=== PATIENT | female | born 1970 | race Hispanic/Latino ===

== ENCOUNTER 2021-02-27 09:45 | Inpatient (IN) | payer MEDICARE ==
[2021-02-27] MEDS ORDERED: hydrOXYzine PAMOATE 25 MG CAP PO PRN (14:37)
[2021-02-27] MEDS: traZODone 50 MG TAB PO SCH (21:07)
[2021-02-27] MEDS: SPIRONOLACTONE 50 MG TAB PO SCH (21:07)
[2021-02-27] MEDS: GABAPENTIN 400 MG CAP PO SCH (21:13)
--- NOTE | 2021-02-28 07:43 | History and Physical Report ---
GP History & Physical - History of Present Illness Date of admission: 02/27/21 Date of Examination: 02/28/21 Chief Complaint: Psychosis History of Present Illness: Kaleb Nath is a 51 year old female with history of Depression, Anxiety and Schizophrenia who was admitted from [facility] for hallucinations/psychosis. In my interview with the patient, she is calm. The patient reports having a nervous breakdown " my neighbors started saying things about me and calling me demon and that I won't make it to heaven; it finally got to me and my sister called 911." Per note: " patient was paranoid thinking neighbors are trying to harm her, seeing heads of people in her food and no sleep for 6 days." The patient states she does not have a psychiatrist but reports she is in care of her PCP. Dr. Chung Waite. The patient reports trying Effexor which she states became ineffective after a while. She is currently on Gabapentin 800mg BID, Vistaril 25mg every 6 hours, and Duloxetine 60mg BID. The patient denies any current suicidal/homicidal ideation and denies hallucinations. PAST PSYCHIATRIC HISTORY: Diagnoses: Depression, Anxiety, and Schizophrenia Suicide attempts or Self-harm behavior: Denies Prior psychiatric hospitalizations: Yes Substance Abuse history: Denies Previous psychiatric medications tried: Effexor- stopped working Outpatient treatment: Yes PAST MEDICAL HISTORY: Skin cancer, Gerd, Factor V Leiden,, DVT, Lupus, Sjogren's syndrome, RA, Raynauds, Sicca, Osteoarthritis, DDD, CKD2, Fatty liver, Agarmmaglobulinemia, Pernicious anemia, HTN. Family Psychiatric History: None reported or documented SOCIAL HISTORY Marital Status: Single Living Arrangements: Lives with son and mother Employment Status: Disabled Access to guns/weapons: Denies Education: some college History of Abuse:Unknown Legal History: Denies REVIEW OF SYSTEMS Constitutional: Negative for weight loss ENT: Negative for stridor Respiratory: Negative for cough or hemoptysis All other systems reviewed and are negative MENTAL STATUS EXAMINATION General Appearance and Behavior: Age appropriate, good hygiene, wearing appropriate clothes. Cooperation: Cooperative Psychomotor Behavior: Psychomotor normal Mood: "ok" Affect and affective range: congruent with stated mood, tearful Thought Process: Goal directed Thought Content: Not suicidal Speech: Normal volume, Regular rate and rhythm, Suicidal Ideation: Denies Homicidal Ideation: Denies Hallucinations: Denies Delusions: None Impulse Control: Impaired Insight and Judgment: Poor Memory: Poor Attention: Distractible Orientation: alert and oriented x3 Assessment and Plan (1) Psychosis Treatment Plan Patient admitted for inpatient psychiatric evaluation, medication adjustment and close monitoring The patient's behavior, mood, sleep and appetite will be closely monitored. Patient enrolled in individual and group therapeutic sessions and encouraged to attend. Patient provided with a safe and structured environment. Patient's physical health needs will be addressed by the Hospitalist. Hospitalist Consulted Labs including CBC, CMP, Lipid profile and Hemoglobin A1C levels ordered for baseline reference Social Assessment will be completed and the Fixing Machine Operator will work with patient and family to ensure a suitable and safe disposition Medication adjustment will be made as clinically indicated Continue home medications Usual Wellness Sabianist/Preservation: - Start Trazodone 50 mg po QHS & 50 mg po QHS PRN between 10 PM & 2 AM for insomnia - Start Melatonin 5 mg po QHS to promote circadian rhythm The patient agreed on the treatment plan, understood the risk, benefit, alternative treatment, potential consequence of no treatment, and gave informed consent. Estimated days: 6 Post hospital care: primary care provider, psychiatric provider Case staffed with Dr. Winslow Legal Status: Voluntary Reaction to Hospitalization: Accepting Medications and Allergies Medications and Allergies Allergies Allergy/AdvReac Type Severity Reaction Status Date / Time Sulfa (Sulfonamide Allergy Unknown Verified 02/27/21 15:28 Antibiotics) Home Medications Medication Instructions Recorded Confirmed Last Taken Type Atorvastatin [Lipitor Tab] 20 mg PO QHS 02/27/21 02/27/21 Unknown History Gabapentin [Neurontin] 800 mg PO BID 02/27/21 02/27/21 Unknown History Omeprazole 40 mg PO DAILY 02/27/21 02/27/21 Unknown History Spironolactone [Aldactone] 50 mg PO BID 02/27/21 02/27/21 Unknown History hydrOXYzine PAMOATE [Vistaril] 25 mg PO Q6HR PRN 02/27/21 02/27/21 Unknown History Duloxetine HCl 120 mg PO DAILY 02/28/21 02/28/21 Unknown History Hydroxychloroquine [Plaquenil] 200 mg PO BID 02/28/21 02/28/21 Unknown History Pilocarpine (Nf) 5 mg PO TID 02/28/21 02/28/21 Unknown History Warfarin [Coumadin] 7.5 mg PO DAILY 02/28/21 02/28/21 Unknown History diazePAM [Diazepam] 5 mg PO BID 02/28/21 02/28/21 Unknown History traMADoL [Ultram 50 MG tab] 50 mg PO Q8HR PRN 02/28/21 02/28/21 Unknown History Active Meds: Active Medications Atorvastatin Calcium (Atorvastatin 40 Mg Tab) 20 mg PO QHS [facility] Last Admin: 02/27/21 21:13 Dose: 20 mg Documented by: Gabapentin (Gabapentin 400 Mg Cap) 800 mg PO BID [facility] Last Admin: 02/27/21 21:13 Dose: 800 mg Documented by: Hydroxyzine Pamoate (Hydroxyzine Pamoate 25 Mg Cap) 25 mg PO Q6HR PRN PRN Reason: Itching Pantoprazole Sodium (Pantoprazole 40 Mg Tab) 40 mg PO DAILY [facility] Spironolactone (Spironolactone 50 Mg Tab) 50 mg PO BID [facility] Last Admin: 02/27/21 21:07 Dose: Not Given Documented by: Trazodone HCl (Trazodone 50 Mg Tab) 50 mg PO QHS [facility] Last Admin: 02/27/21 21:07 Dose: 50 mg Documented by: Results - Results Labs/Vitals: Laboratory Last Values POC Glucose 87 mg/dL (70-105) 02/27/21 19:47 Last Vital Signs Temp 97.8 F 02/27/21 22:00 Pulse 88 02/27/21 22:00 Resp 16 02/27/21 22:00 BP 110/63 02/27/21 22:00 Pulse Ox 100 02/27/21 22:00 Physical Examination - Constitutional Vitals: Vital Signs Temp Pulse Resp BP Pulse Ox 97.8 F 88 16 110/63 100 02/27/21 22:00 02/27/21 22:00 02/27/21 22:00 02/27/21 22:00 02/27/21 22:00 Temperature -Last 24 Hours Temperature 97.8 F Temperature 99.4 F Mental Status Exam - Vital signs Last Vital Signs Temp 97.8 F 02/27/21 22:00 Pulse 88 02/27/21 22:00 Resp 16 02/27/21 22:00 BP 110/63 02/27/21 22:00 Pulse Ox 100 02/27/21 22:00 Physician Certification - Certification Statement Physician Certification Statement: This is an acknowledgement statement that KALEB NATH is a 51 year old F who requires inpatient psychiatric admission for treatment which could reasonably be expected to improve the patient's condition for Estimated period of time patient will need to remain in the hospital: [ ] Plan for post-hospital care: [ ]
[2021-02-28] MEDS: PANTOPRAZOLE 40 MG TAB PO SCH (09:54)
[2021-02-28] MEDS: GABAPENTIN 400 MG CAP PO SCH ×2 (09:54→21:22)
[2021-02-28] MEDS: SPIRONOLACTONE 50 MG TAB PO SCH ×2 (09:56→22:05)
[2021-02-28] MEDS: DULoxetine 30 MG CAP PO SCH ×2 (09:59→21:21)
[2021-02-28] MEDS ORDERED: NON-FORMULARY EACH (Omeprazole [Omeprazole] 40 MG Capsule.Dr) PO SCH (10:00)
[2021-02-28] MEDS ORDERED: traMADol 50 MG TAB PO PRN ×2 (18:30→20:49)
[2021-02-28 19:13] LABS: Basophils % (Auto) 0.5 % (0.0-1.8); Eosinophils # (Auto) 0.1 K/mm3 (0.0-0.4); Eosinophils % (Auto) 1.8 % (0.0-4.3); Hematocrit 28.1 % (30.3-42.9); Lymphocytes # (Auto) 1.5 K/mm3 (1.2-5.4); Lymphocytes % (Auto) 20.9 % (13.4-35.0); Mean Corpuscular HGB Conc 32 % (30-34); Mean Corpuscular Volume 73 fl (79-97); Monocytes # (Auto) 0.4 K/mm3 (0.0-0.8); Platelet Count 324 K/mm3 (140-440); Red Blood Count 3.87 M/mm3 (3.65-5.03); Red Cell Distribution Width 17.3 % (13.2-15.2)
[2021-02-28 19:42] LABS: Alanine Aminotransferase 7 units/L (7-56); Albumin 3.1 g/dL (3.9-5); BUN/Creatinine Ratio 9; Blood Urea Nitrogen 8 mg/dL (7-17); Calcium 8.8 mg/dL (8.4-10.2); HDL Cholesterol 21 mg/dL (40-59); Hemolysis Index 5; LDL Cholesterol,Direct 79 mg/dL (50-130)
[2021-02-28 19:45] LABS: Hepatitis C Virus Antibody Non-Reactive (NonReactive)
[2021-02-28 19:49] LABS: Hepatitis B Surface Antigen Nonreactive (Negative)
--- NOTE | 2021-02-28 20:49 | Consultation ---
History of Present Illness - Reason for Consult Consult date: 02/28/21 Medical management Requesting physician: CASS ANTON - History of Present Illness Delmi Israel is a 51 year old female with history of Depression, Anxiety and Schizophrenia who was admitted from [facility] for hallucinations/psychosis. In my interview with the patient, she is calm. The patient reports having a nervous breakdown " my neighbors started saying things about me and calling me demon and that I won't make it to heaven; it finally got to me and my sister called 911." Per note: " patient was paranoid thinking neighbors are trying to harm her, seeing heads of people in her food and no sleep for 6 days." The patient states she does not have a psychiatrist but reports she is in care of her PCP. Dr. Chung Waite. The patient reports trying Effexor which she states became ineffective after a while. She is currently on Gabapentin 800mg BID, Vistaril 25mg every 6 hours, and Duloxetine 60mg BID. The patient denies any current suicidal/homicidal ideation and denies hallucinations. PAST MEDICAL HISTORY: Skin cancer, Gerd, Factor V Leiden,, DVT, Lupus, Sjogren's syndrome, RA, Raynauds, Sicca, Osteoarthritis, DDD, CKD2, Fatty liver, Agarmm aglobulinemia, Pernicious anemia, HTN. PAST PSYCHIATRIC HISTORY: Diagnoses: Depression, Anxiety, and Schizophrenia Suicide attempts or Self-harm behavior: Denies Prior psychiatric hospitalizations: Yes Substance Abuse history: Denies Previous psychiatric medications tried: Effexor- stopped working Outpatient treatment: Yes Family Psychiatric History: None reported or documented SOCIAL HISTORY Marital Status: Single Living Arrangements: Lives with son and mother Employment Status: Disabled Access to guns/weapons: Denies Education: some college History of Abuse:Unknown Legal History: Denies REVIEW OF SYSTEMS Constitutional: Negative for weight loss ENT: Negative for stridor Respiratory: Negative for cough or hemoptysis All other systems reviewed and are negative Medications and Allergies Allergies Allergy/AdvReac Type Severity Reaction Status Date / Time Sulfa (Sulfonamide Allergy Unknown Verified 02/27/21 15:28 Antibiotics) Home Medications Medication Instructions Recorded Confirmed Last Taken Type Atorvastatin [Lipitor Tab] 20 mg PO QHS 02/27/21 02/27/21 Unknown History Gabapentin [Neurontin] 800 mg PO BID 02/27/21 02/27/21 Unknown History Omeprazole 40 mg PO DAILY 02/27/21 02/27/21 Unknown History Spironolactone [Aldactone] 50 mg PO BID 02/27/21 02/27/21 Unknown History hydrOXYzine PAMOATE [Vistaril] 25 mg PO Q6HR PRN 02/27/21 02/27/21 Unknown History Duloxetine HCl 120 mg PO DAILY 02/28/21 02/28/21 Unknown History Hydroxychloroquine [Plaquenil] 200 mg PO BID 02/28/21 02/28/21 Unknown History Pilocarpine (Nf) 5 mg PO TID 02/28/21 02/28/21 Unknown History Warfarin [Coumadin] 7.5 mg PO DAILY 02/28/21 02/28/21 Unknown History diazePAM [Diazepam] 5 mg PO BID 02/28/21 02/28/21 Unknown History traMADoL [Ultram 50 MG tab] 50 mg PO Q8HR PRN 02/28/21 02/28/21 Unknown History Active Meds: Active Medications Atorvastatin Calcium (Atorvastatin 40 Mg Tab) 20 mg PO QHS [facility] Last Admin: 02/27/21 21:13 Dose: 20 mg Documented by: Duloxetine HCl (Duloxetine 30 Mg Cap) 60 mg PO BID [facility] Last Admin: 02/28/21 09:59 Dose: 60 mg Documented by: Gabapentin (Gabapentin 400 Mg Cap) 800 mg PO BID [facility] Last Admin: 02/28/21 09:54 Dose: 800 mg Documented by: Hydroxyzine Pamoate (Hydroxyzine Pamoate 25 Mg Cap) 25 mg PO Q6HR PRN PRN Reason: Itching Pantoprazole Sodium (Pantoprazole 40 Mg Tab) 40 mg PO DAILY [facility] Last Admin: 02/28/21 09:54 Dose: 40 mg Documented by: Spironolactone (Spironolactone 50 Mg Tab) 50 mg PO BID [facility] Last Admin: 02/28/21 09:56 Dose: 50 mg Documented by: Tramadol HCl (Tramadol 50 Mg Tab) 50 mg PO TID PRN PRN Reason: Pain, Moderate (4-6) Trazodone HCl (Trazodone 50 Mg Tab) 50 mg PO QHS [facility] Last Admin: 02/27/21 21:07 Dose: 50 mg Documented by: Exam - Constitutional Vitals: Temp Pulse Resp BP Pulse Ox 99.7 F H 93 H 18 111/62 95 02/28/21 08:00 02/28/21 09:56 02/28/21 08:00 02/28/21 09:56 02/28/21 08:00 General appearance: Present: no acute distress, well-nourished - EENT Eyes: Present: PERRL ENT: hearing intact, clear oral mucosa - Neck Neck: Present: supple, normal ROM - Respiratory Respiratory effort: normal Respiratory: bilateral: CTA - Cardiovascular Heart rate: 78 Rhythm: regular Heart Sounds: Present: S1 & S2. Absent: rub, click - Extremities Extremities: pulses symmetrical, No edema Peripheral Pulses: within normal limits - Abdominal General gastrointestinal: Present: soft, non-tender, non-distended, normal bowel sounds Female genitourinary: Present: normal - Integumentary Integumentary: Present: clear, warm, dry - Musculoskeletal Musculoskeletal: gait normal, strength equal bilaterally - Psychiatric Psychiatric: appropriate mood/affect, intact judgment & insight - Neurologic Neurologic: CNII-XII intact, moves all extremities Results - Labs CBC & Chem 7: 02/28/21 18:43 02/28/21 18:43 Labs: Abnormal lab results 02/28/21 02/28/21 Range/Units 18:43 18:43 Hgb 9.0 L (10.1-14.3) gm/dl Hct 28.1 L (30.3-42.9) % MCV 73 L (79-97) fl MCH 23 L (28-32) pg RDW 17.3 H (13.2-15.2) % Seg Neutrophils % 70.8 H (40.0-70.0) % Carbon Dioxide 37 H (22-30) mmol/L Glucose 101 H (65-100) mg/dL Albumin 3.1 L (3.9-5) g/dL HDL Cholesterol 21 L (40-59) mg/dL Assessment and Plan - Patient Problems (1) Lupus (systemic lupus erythematosus) Current Visit: Yes Status: Chronic Qualifiers: Systemic lupus erythematosus type: unspecified Plan to address problem: Continue Plaquenil 200 twice daily (2) HTN (hypertension) Current Visit: Yes Status: Chronic Qualifiers: Hypertension type: primary hypertension Qualified Code(s): I10 - Essential (primary) hypertension Plan to address problem: Continue antihypertensives (3) HLD (hyperlipidemia) Current Visit: Yes Status: Chronic Qualifiers: Hyperlipidemia type: mixed hyperlipidemia Qualified Code(s): E78.2 - Mixed hyperlipidemia Plan to address problem: Continue statins (4) Peripheral neuropathy Current Visit: Yes Status: Chronic Plan to address problem: Continue gabapentin (5) GERD (gastroesophageal reflux disease) Current Visit: Yes Status: Chronic Qualifiers: Esophagitis presence: without esophagitis Qualified Code(s): K21.9 - Gastro-esophageal reflux disease without esophagitis Plan to address problem: Continue Protonix (6) DVT prophylaxis Current Visit: Yes Status: Acute Plan to address problem: Anticoagulation and GI prophylaxis
[2021-02-28] MEDS ORDERED: WARFARIN 7.5 MG TAB PO SCH (21:00)
[2021-02-28] MEDS ORDERED: NON-FORMULARY EACH (Duloxetine Hcl [Duloxetine Hcl] 60 MG Capsule.Dr) PO SCH (21:00)
[2021-02-28] MEDS: traZODone 50 MG TAB PO SCH (21:21)
[2021-02-28] MEDS: diazePAM 5 MG TAB PO SCH (21:24)
[2021-02-28] MEDS: HYDROXYCHLOROQUINE 200 MG TAB PO SCH (21:56)
[2021-03-01] MEDS ORDERED: PILOCARPINE (NF) 5 MG TAB PO SCH (08:00)
--- NOTE | 2021-03-01 08:47 | Progress Note ---
Subjective Date of service: 03/01/21 Subjective Comment: 03/01/2021:The patient was seen in the activity room eating breakfast. She reports doing well. Reports sleep and appetite as good. The patient is focused on discharge. She denies any current suicidal/homicidal ideation and denies hallucinations. Per nurse, the patient had a quiet night. No changes made today. REVIEW OF SYSTEMS Constitutional: Negative for weight loss ENT: Negative for stridor Respiratory: Negative for cough or hemoptysis All other systems reviewed and are negative MENTAL STATUS EXAMINATION General Appearance and Behavior: Age appropriate, good hygiene, wearing appropriate clothes. Cooperation: Cooperative Psychomotor Behavior: Psychomotor normal Mood: "ok" Affect and affective range: congruent with stated mood, tearful Thought Process: Goal directed Thought Content: Not suicidal Speech: Normal volume, Regular rate and rhythm, Suicidal Ideation: Denies Homicidal Ideation: Denies Hallucinations: Denies Delusions: None Impulse Control: Impaired Insight and Judgment: Poor Memory: Poor Attention: Distractible Orientation: alert and oriented x3 Assessment and Plan (1) Psychosis Treatment Plan Patient admitted for inpatient psychiatric evaluation, medication adjustment and close monitoring The patient's behavior, mood, sleep and appetite will be closely monitored. Patient enrolled in individual and group therapeutic sessions and encouraged to attend. Patient provided with a safe and structured environment. Patient's physical health needs will be addressed by the Hospitalist. Hospitalist Consulted Labs including CBC, CMP, Lipid profile and Hemoglobin A1C levels ordered for baseline reference Social Assessment will be completed and the Payroll And Benefits Manager will work with patient and family to ensure a suitable and safe disposition Medication adjustment will be made as clinically indicated Continue home medications Usual Wellness Jewish/Preservation: - Start Trazodone 50 mg po QHS & 50 mg po QHS PRN between 10 PM & 2 AM for insomnia - Start Melatonin 5 mg po QHS to promote circadian rhythm The patient agreed on the treatment plan, understood the risk, benefit, alternative treatment, potential consequence of no treatment, and gave informed consent. Estimated days: 6 Post hospital care: primary care provider, psychiatric provider Case staffed with Dr. Winslow Legal Status: Voluntary Reaction to Hospitalization: Accepting Medications and Allergies Medications and Allergies Allergies Allergy/AdvReac Type Severity Reaction Status Date / Time Sulfa (Sulfonamide Allergy Unknown Verified 02/27/21 15:28 Antibiotics) Home Medications Medication Instructions Recorded Confirmed Last Taken Type Atorvastatin [Lipitor Tab] 20 mg PO QHS 02/27/21 02/27/21 Unknown History Gabapentin [Neurontin] 800 mg PO BID 02/27/21 02/27/21 Unknown History Omeprazole 40 mg PO DAILY 02/27/21 02/27/21 Unknown History Spironolactone [Aldactone] 50 mg PO BID 02/27/21 02/27/21 Unknown History hydrOXYzine PAMOATE [Vistaril] 25 mg PO Q6HR PRN 02/27/21 02/27/21 Unknown History Duloxetine HCl 120 mg PO DAILY 02/28/21 02/28/21 Unknown History Hydroxychloroquine [Plaquenil] 200 mg PO BID 02/28/21 02/28/21 Unknown History Pilocarpine (Nf) 5 mg PO TID 02/28/21 02/28/21 Unknown History Warfarin [Coumadin] 7.5 mg PO DAILY 02/28/21 02/28/21 Unknown History diazePAM [Diazepam] 5 mg PO BID 02/28/21 02/28/21 Unknown History traMADoL [Ultram 50 MG tab] 50 mg PO Q8HR PRN 02/28/21 02/28/21 Unknown History Active Meds: Active Medications Atorvastatin Calcium (Atorvastatin 40 Mg Tab) 20 mg PO QHS [facility] Last Admin: 02/28/21 21:22 Dose: 20 mg Documented by: Diazepam (Diazepam 5 Mg Tab) 5 mg PO BID [facility] Last Admin: 02/28/21 21:24 Dose: 5 mg Documented by: Duloxetine HCl (Duloxetine 30 Mg Cap) 60 mg PO BID [facility] Last Admin: 02/28/21 21:21 Dose: 60 mg Documented by: Gabapentin (Gabapentin 400 Mg Cap) 800 mg PO BID [facility] Last Admin: 02/28/21 21:22 Dose: 800 mg Documented by: Hydroxychloroquine Sulfate (Hydroxychloroquine 200 Mg Tab) 200 mg PO BID [facility] Last Admin: 02/28/21 21:56 Dose: 200 mg Documented by: Hydroxyzine Pamoate (Hydroxyzine Pamoate 25 Mg Cap) 25 mg PO Q6HR PRN PRN Reason: Itching Pantoprazole Sodium (Pantoprazole 40 Mg Tab) 40 mg PO DAILY [facility] Last Admin: 02/28/21 09:54 Dose: 40 mg Documented by: Spironolactone (Spironolactone 50 Mg Tab) 50 mg PO BID [facility] Last Admin: 02/28/21 22:05 Dose: Not Given Documented by: Tramadol HCl (Tramadol 50 Mg Tab) 50 mg PO TID PRN PRN Reason: Pain, Moderate (4-6) Trazodone HCl (Trazodone 50 Mg Tab) 50 mg PO QHS [facility] Last Admin: 02/28/21 21:21 Dose: 50 mg Documented by: Warfarin Sodium (Warfarin 7.5 Mg Tab) 7.5 mg PO DAILY@1700 DANNY; Protocol Results - Results Labs/Vitals: Laboratory Last Values WBC 7.4 K/mm3 (4.5-11.0) 02/28/21 18:43 RBC 3.87 M/mm3 (3.65-5.03) 02/28/21 18:43 Hgb 9.0 gm/dl (10.1-14.3) L 02/28/21 18:43 Hct 28.1 % (30.3-42.9) L 02/28/21 18:43 MCV 73 fl (79-97) L 02/28/21 18:43 MCH 23 pg (28-32) L 02/28/21 18:43 MCHC 32 % (30-34) 02/28/21 18:43 RDW 17.3 % (13.2-15.2) H 02/28/21 18:43 Plt Count 324 K/mm3 (140-440) 02/28/21 18:43 Lymph % (Auto) 20.9 % (13.4-35.0) 02/28/21 18:43 Elliott % (Auto) 6.0 % (0.0-7.3) 02/28/21 18:43 Eos % (Auto) 1.8 % (0.0-4.3) 02/28/21 18:43 Baso % (Auto) 0.5 % (0.0-1.8) 02/28/21 18:43 Lymph # (Auto) 1.5 K/mm3 (1.2-5.4) 02/28/21 18:43 Elliott # (Auto) 0.4 K/mm3 (0.0-0.8) 02/28/21 18:43 Eos # (Auto) 0.1 K/mm3 (0.0-0.4) 02/28/21 18:43 Baso # (Auto) 0.0 K/mm3 (0.0-0.1) 02/28/21 18:43 Seg Neutrophils % 70.8 % (40.0-70.0) H 02/28/21 18:43 Seg Neutrophils # 5.3 K/mm3 (1.8-7.7) 02/28/21 18:43 Sodium 139 mmol/L (137-145) 02/28/21 18:43 Potassium 4.0 mmol/L (3.6-5.0) 02/28/21 18:43 Chloride 100.5 mmol/L (98-107) 02/28/21 18:43 Carbon Dioxide 37 mmol/L (22-30) H 02/28/21 18:43 Anion Gap 6 mmol/L 02/28/21 18:43 BUN 8 mg/dL (7-17) 02/28/21 18:43 Creatinine 0.9 mg/dL (0.6-1.2) 02/28/21 18:43 Estimated GFR > 60 ml/min 02/28/21 18:43 BUN/Creatinine Ratio 9 % 02/28/21 18:43 Glucose 101 mg/dL (65-100) H 02/28/21 18:43 POC Glucose 87 mg/dL (70-105) 02/27/21 19:47 Calcium 8.8 mg/dL (8.4-10.2) 02/28/21 18:43 Total Bilirubin 0.40 mg/dL (0.1-1.2) 02/28/21 18:43 AST 13 units/L (5-40) 02/28/21 18:43 ALT 7 units/L (7-56) 02/28/21 18:43 Alkaline Phosphatase 97 units/L (35-129) 02/28/21 18:43 Total Protein 6.6 g/dL (6.3-8.2) 02/28/21 18:43 Albumin 3.1 g/dL (3.9-5) L 02/28/21 18:43 Albumin/Globulin Ratio 0.9 % 02/28/21 18:43 Triglycerides 101 mg/dL (2-149) 02/28/21 18:43 Cholesterol 126 mg/dL (50-199) 02/28/21 18:43 LDL Cholesterol Direct 79 mg/dL (50-130) 02/28/21 18:43 HDL Cholesterol 21 mg/dL (40-59) L 02/28/21 18:43 Cholesterol/HDL Ratio 6.00 % 02/28/21 18:43 TSH 0.661 mlU/mL (0.270-4.200) 02/28/21 18:43 Hepatitis A IgM Ab Non-reactive (NonReactive) 02/28/21 18:43 Hep Bs Antigen Nonreactive (Negative) 02/28/21 18:43 Hep B Core IgM Ab Non-reactive (NonReactive) 02/28/21 18:43 Hepatitis C Antibody Non-reactive (NonReactive) 02/28/21 18:43 Last Vital Signs Temp 98.3 F 02/28/21 19:30 Pulse 79 02/28/21 22:00 Resp 18 02/28/21 22:00 BP 98/54 02/28/21 22:00 Pulse Ox 100 02/28/21 22:00
[2021-03-01] MEDS: GABAPENTIN 400 MG CAP PO SCH ×2 (10:34→21:04)
[2021-03-01] MEDS: PANTOPRAZOLE 40 MG TAB PO SCH (10:34)
[2021-03-01] MEDS: diazePAM 5 MG TAB PO SCH ×2 (10:34→21:04)
[2021-03-01] MEDS: HYDROXYCHLOROQUINE 200 MG TAB PO SCH ×2 (10:34→21:04)
[2021-03-01] MEDS: SPIRONOLACTONE 50 MG TAB PO SCH ×2 (10:34→21:05)
[2021-03-01] MEDS: DULoxetine 30 MG CAP PO SCH ×2 (10:34→21:04)
[2021-03-01 12:54] LABS: INR 2.13 (0.87-1.13)
[2021-03-01] MEDS: WARFARIN 7.5 MG TAB PO SCH (18:13)
--- NOTE | 2021-03-01 19:04 | Event Note ---
Date: 03/01/21 I spoke to patient's sister Monique Castellanos at [phone] who states that in her conversations with the patient while on admission she continues to be paranoid, stating that people are out to get her and that she has bugs crawling out of her skin; Ms. Amaya states that the patient has also related these concerns to other family members. Ms. Amaya was informed that the patient has always confirmed having no SI/HI/AVHs however, that the patient will be reevaluated in the morning.
[2021-03-01] MEDS: traZODone 50 MG TAB PO SCH (21:04)
[2021-03-01] MEDS: PILOCARPINE (NF) 5 MG TAB PO SCH ×2 (22:53→22:54)
--- NOTE | 2021-03-02 08:59 | Progress Note ---
Subjective Date of service: 03/02/21 Subjective Comment: The patient was seen in her room today, and she reports doing well but complain of shoulder and back pain. The patient reports that depression and anxiety is improving. She continues to affirm the she does not have SI/HI/AVHs. She is focused on discharge. Per nurse, " pt spent last evening in activity room interacting with peer, she is alert and oriented x4, calm and cooperative, bright affect with stable mood, denies si/hi, denies a/v/h, able to make needs known, appetite is good, medication compliant, over night, pt rested quietly, slept for 8hrs, o2 remains at 2liters n/c. no distress noted, will continue to monitor for safety." No changes made today. REVIEW OF SYSTEMS Constitutional: Negative for weight loss ENT: Negative for stridor Respiratory: Negative for cough or hemoptysis All other systems reviewed and are negative MENTAL STATUS EXAMINATION General Appearance and Behavior: Age appropriate, good hygiene, wearing appropriate clothes. Cooperation: Cooperative Psychomotor Behavior: Psychomotor normal Mood: "good" Affect and affective range: congruent with stated mood, tearful Thought Process: Goal directed Thought Content: Not suicidal Speech: Normal volume, Regular rate and rhythm, Suicidal Ideation: Denies Homicidal Ideation: Denies Hallucinations: Denies Delusions: None Impulse Control: Impaired Insight and Judgment: Poor Memory: Poor Attention: Distractible Orientation: alert and oriented x3 Assessment and Plan (1) Psychosis Treatment Plan Patient admitted for inpatient psychiatric evaluation, medication adjustment and close monitoring The patient's behavior, mood, sleep and appetite will be closely monitored. Patient enrolled in individual and group therapeutic sessions and encouraged to attend. Patient provided with a safe and structured environment. Patient's physical health needs will be addressed by the Hospitalist. Hospitalist Consulted Labs including CBC, CMP, Lipid profile and Hemoglobin A1C levels ordered for baseline reference Social Assessment will be completed and the Stock Analyst will work with patient and family to ensure a suitable and safe disposition Medication adjustment will be made as clinically indicated Continue home medications Usual Wellness Congregational/Preservation: - Start Trazodone 50 mg po QHS & 50 mg po QHS PRN between 10 PM & 2 AM for insomnia - Start Melatonin 5 mg po QHS to promote circadian rhythm The patient agreed on the treatment plan, understood the risk, benefit, alternative treatment, potential consequence of no treatment, and gave informed consent. Estimated days: 6 Post hospital care: primary care provider, psychiatric provider Case staffed with Dr. Winslow Legal Status: Voluntary Reaction to Hospitalization: Accepting Medications and Allergies Medications and Allergies Allergies Allergy/AdvReac Type Severity Reaction Status Date / Time Sulfa (Sulfonamide Allergy Unknown Verified 02/27/21 15:28 Antibiotics) Home Medications Medication Instructions Recorded Confirmed Last Taken Type Atorvastatin [Lipitor Tab] 20 mg PO QHS 02/27/21 02/27/21 Unknown History Gabapentin [Neurontin] 800 mg PO BID 02/27/21 02/27/21 Unknown History Omeprazole 40 mg PO DAILY 02/27/21 02/27/21 Unknown History Spironolactone [Aldactone] 50 mg PO BID 02/27/21 02/27/21 Unknown History hydrOXYzine PAMOATE [Vistaril] 25 mg PO Q6HR PRN 02/27/21 02/27/21 Unknown History Duloxetine HCl 120 mg PO DAILY 02/28/21 02/28/21 Unknown History Hydroxychloroquine [Plaquenil] 200 mg PO BID 02/28/21 02/28/21 Unknown History Pilocarpine (Nf) 5 mg PO TID 02/28/21 02/28/21 Unknown History Warfarin [Coumadin] 7.5 mg PO DAILY 02/28/21 02/28/21 Unknown History diazePAM [Diazepam] 5 mg PO BID 02/28/21 02/28/21 Unknown History traMADoL [Ultram 50 MG tab] 50 mg PO Q8HR PRN 02/28/21 02/28/21 Unknown History Active Meds: Active Medications Atorvastatin Calcium (Atorvastatin 40 Mg Tab) 20 mg PO QHS [facility] Last Admin: 03/01/21 21:04 Dose: 20 mg Documented by: Diazepam (Diazepam 5 Mg Tab) 5 mg PO BID [facility] Last Admin: 03/01/21 21:04 Dose: 5 mg Documented by: Duloxetine HCl (Duloxetine 30 Mg Cap) 60 mg PO BID [facility] Last Admin: 03/01/21 21:04 Dose: 60 mg Documented by: Gabapentin (Gabapentin 400 Mg Cap) 800 mg PO BID [facility] Last Admin: 03/01/21 21:04 Dose: 800 mg Documented by: Hydroxychloroquine Sulfate (Hydroxychloroquine 200 Mg Tab) 200 mg PO BID [facility] Last Admin: 03/01/21 21:04 Dose: 200 mg Documented by: Hydroxyzine Pamoate (Hydroxyzine Pamoate 25 Mg Cap) 25 mg PO Q6HR PRN PRN Reason: Itching Pantoprazole Sodium (Pantoprazole 40 Mg Tab) 40 mg PO DAILY [facility] Last Admin: 03/01/21 10:34 Dose: 40 mg Documented by: Spironolactone (Spironolactone 50 Mg Tab) 50 mg PO BID [facility] Last Admin: 03/01/21 21:05 Dose: Not Given Documented by: Tramadol HCl (Tramadol 50 Mg Tab) 50 mg PO TID PRN PRN Reason: Pain, Moderate (4-6) Trazodone HCl (Trazodone 50 Mg Tab) 50 mg PO QHS [facility] Last Admin: 03/01/21 21:04 Dose: 50 mg Documented by: Warfarin Sodium (Warfarin 7.5 Mg Tab) 7.5 mg PO DAILY@1700 [facility]; Protocol Last Admin: 03/01/21 18:13 Dose: 7.5 mg Documented by: Results - Results Labs/Vitals: Laboratory Last Values WBC 7.4 K/mm3 (4.5-11.0) 02/28/21 18:43 RBC 3.87 M/mm3 (3.65-5.03) 02/28/21 18:43 Hgb 9.0 gm/dl (10.1-14.3) L 02/28/21 18:43 Hct 28.1 % (30.3-42.9) L 02/28/21 18:43 MCV 73 fl (79-97) L 02/28/21 18:43 MCH 23 pg (28-32) L 02/28/21 18:43 MCHC 32 % (30-34) 02/28/21 18:43 RDW 17.3 % (13.2-15.2) H 02/28/21 18:43 Plt Count 324 K/mm3 (140-440) 02/28/21 18:43 Lymph % (Auto) 20.9 % (13.4-35.0) 02/28/21 18:43 [place] % (Auto) 6.0 % (0.0-7.3) 02/28/21 18:43 Eos % (Auto) 1.8 % (0.0-4.3) 02/28/21 18:43 Baso % (Auto) 0.5 % (0.0-1.8) 02/28/21 18:43 Lymph # (Auto) 1.5 K/mm3 (1.2-5.4) 02/28/21 18:43 [place] # (Auto) 0.4 K/mm3 (0.0-0.8) 02/28/21 18:43 Eos # (Auto) 0.1 K/mm3 (0.0-0.4) 02/28/21 18:43 Baso # (Auto) 0.0 K/mm3 (0.0-0.1) 02/28/21 18:43 Seg Neutrophils % 70.8 % (40.0-70.0) H 02/28/21 18:43 Seg Neutrophils # 5.3 K/mm3 (1.8-7.7) 02/28/21 18:43 PT 24.4 Sec. (12.2-14.9) H 03/01/21 11:03 INR 2.13 (0.87-1.13) H 03/01/21 11:03 Sodium 139 mmol/L (137-145) 02/28/21 18:43 Potassium 4.0 mmol/L (3.6-5.0) 02/28/21 18:43 Chloride 100.5 mmol/L (98-107) 02/28/21 18:43 Carbon Dioxide 37 mmol/L (22-30) H 02/28/21 18:43 Anion Gap 6 mmol/L 02/28/21 18:43 BUN 8 mg/dL (7-17) 02/28/21 18:43 Creatinine 0.9 mg/dL (0.6-1.2) 02/28/21 18:43 Estimated GFR > 60 ml/min 02/28/21 18:43 BUN/Creatinine Ratio 9 % 02/28/21 18:43 Glucose 101 mg/dL (65-100) H 02/28/21 18:43 POC Glucose 87 mg/dL (70-105) 02/27/21 19:47 Calcium 8.8 mg/dL (8.4-10.2) 02/28/21 18:43 Total Bilirubin 0.40 mg/dL (0.1-1.2) 02/28/21 18:43 AST 13 units/L (5-40) 02/28/21 18:43 ALT 7 units/L (7-56) 02/28/21 18:43 Alkaline Phosphatase 97 units/L (35-129) 02/28/21 18:43 Total Protein 6.6 g/dL (6.3-8.2) 02/28/21 18:43 Albumin 3.1 g/dL (3.9-5) L 02/28/21 18:43 Albumin/Globulin Ratio 0.9 % 02/28/21 18:43 Triglycerides 101 mg/dL (2-149) 02/28/21 18:43 Cholesterol 126 mg/dL (50-199) 02/28/21 18:43 LDL Cholesterol Direct 79 mg/dL (50-130) 02/28/21 18:43 HDL Cholesterol 21 mg/dL (40-59) L 02/28/21 18:43 Cholesterol/HDL Ratio 6.00 % 02/28/21 18:43 TSH 0.661 mlU/mL (0.270-4.200) 02/28/21 18:43 Hepatitis A IgM Ab Non-reactive (NonReactive) 02/28/21 18:43 Hep Bs Antigen Nonreactive (Negative) 02/28/21 18:43 Hep B Core IgM Ab Non-reactive (NonReactive) 02/28/21 18:43 Hepatitis C Antibody Non-reactive (NonReactive) 02/28/21 18:43 Last Vital Signs Temp 98.2 F 03/01/21 19:58 Pulse 77 03/01/21 21:05 Resp 20 03/01/21 19:58 BP 101/57 03/01/21 21:05 Pulse Ox 96 03/01/21 19:58
[2021-03-02] MEDS: HYDROXYCHLOROQUINE 200 MG TAB PO SCH ×2 (09:13→21:21)
[2021-03-02] MEDS: PANTOPRAZOLE 40 MG TAB PO SCH (09:13)
[2021-03-02] MEDS: DULoxetine 30 MG CAP PO SCH ×2 (09:13→21:19)
[2021-03-02] MEDS: SPIRONOLACTONE 50 MG TAB PO SCH ×2 (09:13→21:24)
[2021-03-02] MEDS: GABAPENTIN 400 MG CAP PO SCH ×2 (09:13→21:19)
[2021-03-02] MEDS: diazePAM 5 MG TAB PO SCH ×2 (09:14→21:23)
[2021-03-02] MEDS: PILOCARPINE (NF) 5 MG TAB PO SCH ×3 (09:14→20:17)
[2021-03-02 16:35] LABS: INR 1.9 (0.87-1.13)
[2021-03-02] MEDS: WARFARIN 7.5 MG TAB PO SCH (16:50)
[2021-03-02] MEDS: traZODone 50 MG TAB PO SCH (21:22)
[2021-03-03 06:17] LABS: INR 2.11 (0.87-1.13)
[2021-03-03] MEDS: SPIRONOLACTONE 50 MG TAB PO SCH (09:25)
[2021-03-03] MEDS: HYDROXYCHLOROQUINE 200 MG TAB PO SCH (09:27)
[2021-03-03] MEDS: PANTOPRAZOLE 40 MG TAB PO SCH (09:28)
[2021-03-03] MEDS: diazePAM 5 MG TAB PO SCH (09:28)
[2021-03-03] MEDS: DULoxetine 30 MG CAP PO SCH (09:28)
[2021-03-03] MEDS: GABAPENTIN 400 MG CAP PO SCH (09:29)
[2021-03-03 09:34] VITALS: BP 117/57
--- NOTE | 2021-03-03 10:16 | Discharge Summary ---
Providers - Providers Date of Admission: 02/27/21 14:42 Date of discharge: 03/03/21 Attending physician: CASS ANTON MD 02/27/21 14:27 Consult to Physician [CONS] Routine Comment: Consulting Provider: NATHANAEL ROMERO Physician Instructions: Reason For Exam: manage existing conditions Primary care physician: [facility] Hospitalization Reason for admission: psychosis Admitting Diagnosis: F33.9 - MAJOR DEPRESSIVE DISORDER, RECURRENT, UNSPECIFIED Condition: Stable Hospital course: The patient was provided inpatient psychiatric treatment with safe and supportive care, medication adjustment, adverse effect monitoring, medical evaluations, medical treatments, assessment and psycho-education. The patient's mood, cognition, behavior, moral support are improved and stabilized. St the time of discharge, the patient had no endangering behavior and no debilitating adverse effects. The patient agreed on potential consequences of no treatment and gave informed consent. 03/02 The patient was seen in her room today, and she reports doing well but complain of shoulder and back pain. The patient reports that depression and anxiety is improving. She continues to affirm the she does not have SI/HI/AVHs. She is focused on discharge. Per nurse, " pt spent last evening in activity room interacting with peer, she is alert and oriented x4, calm and cooperative, bright affect with stable mood, denies si/hi, denies a/v/h, able to make needs k nown, appetite is good, medication compliant, over night, pt rested quietly, slept for 8hrs, o2 remains at 2liters n/c. no distress noted, will continue to monitor for safety." No changes made today. 03/03 The patient was seen today. She says she is doing well. She says she was admitted because she was having a hard time dealing with the loss of her father. She denies SI/HI. The patient states "I was never suicidal or wanted to hurt anyone else." She denies hallucinations of any kind. Disposition: HOME / SELF CARE / HOMELESS Time spent for discharge: 35 Allergies/Adverse Reactions: Allergies Sulfa (Sulfonamide Antibiotics) Allergy (Verified 02/27/21 15:28) Unknown Vital Signs: Last Vital Signs Temp 98.9 F 03/02/21 19:22 Pulse 84 03/03/21 09:25 Resp 18 03/02/21 19:22 BP 117/57 03/03/21 09:25 Pulse Ox 98 03/02/21 19:22 Last Lab: Laboratory Last Values WBC 7.4 K/mm3 (4.5-11.0) 02/28/21 18:43 RBC 3.87 M/mm3 (3.65-5.03) 02/28/21 18:43 Hgb 9.0 gm/dl (10.1-14.3) L 02/28/21 18:43 Hct 28.1 % (30.3-42.9) L 02/28/21 18:43 MCV 73 fl (79-97) L 02/28/21 18:43 MCH 23 pg (28-32) L 02/28/21 18:43 MCHC 32 % (30-34) 02/28/21 18:43 RDW 17.3 % (13.2-15.2) H 02/28/21 18:43 Plt Count 324 K/mm3 (140-440) 02/28/21 18:43 Lymph % (Auto) 20.9 % (13.4-35.0) 02/28/21 18:43 [place] % (Auto) 6.0 % (0.0-7.3) 02/28/21 18:43 Eos % (Auto) 1.8 % (0.0-4.3) 02/28/21 18:43 Baso % (Auto) 0.5 % (0.0-1.8) 02/28/21 18:43 Lymph # (Auto) 1.5 K/mm3 (1.2-5.4) 02/28/21 18:43 [place] # (Auto) 0.4 K/mm3 (0.0-0.8) 02/28/21 18:43 Eos # (Auto) 0.1 K/mm3 (0.0-0.4) 02/28/21 18:43 Baso # (Auto) 0.0 K/mm3 (0.0-0.1) 02/28/21 18:43 Seg Neutrophils % 70.8 % (40.0-70.0) H 02/28/21 18:43 Seg Neutrophils # 5.3 K/mm3 (1.8-7.7) 02/28/21 18:43 PT 24.2 Sec. (12.2-14.9) H 03/03/21 05:27 INR 2.11 (0.87-1.13) H 03/03/21 05:27 Sodium 139 mmol/L (137-145) 02/28/21 18:43 Potassium 4.0 mmol/L (3.6-5.0) 02/28/21 18:43 Chloride 100.5 mmol/L (98-107) 02/28/21 18:43 Carbon Dioxide 37 mmol/L (22-30) H 02/28/21 18:43 Anion Gap 6 mmol/L 02/28/21 18:43 BUN 8 mg/dL (7-17) 02/28/21 18:43 Creatinine 0.9 mg/dL (0.6-1.2) 02/28/21 18:43 Estimated GFR > 60 ml/min 02/28/21 18:43 BUN/Creatinine Ratio 9 % 02/28/21 18:43 Glucose 101 mg/dL (65-100) H 02/28/21 18:43 POC Glucose 87 mg/dL (70-105) 02/27/21 19:47 Calcium 8.8 mg/dL (8.4-10.2) 02/28/21 18:43 Total Bilirubin 0.40 mg/dL (0.1-1.2) 02/28/21 18:43 AST 13 units/L (5-40) 02/28/21 18:43 ALT 7 units/L (7-56) 02/28/21 18:43 Alkaline Phosphatase 97 units/L (35-129) 02/28/21 18:43 Total Protein 6.6 g/dL (6.3-8.2) 02/28/21 18:43 Albumin 3.1 g/dL (3.9-5) L 02/28/21 18:43 Albumin/Globulin Ratio 0.9 % 02/28/21 18:43 Triglycerides 101 mg/dL (2-149) 02/28/21 18:43 Cholesterol 126 mg/dL (50-199) 02/28/21 18:43 LDL Cholesterol Direct 79 mg/dL (50-130) 02/28/21 18:43 HDL Cholesterol 21 mg/dL (40-59) L 02/28/21 18:43 Cholesterol/HDL Ratio 6.00 % 09/21/21 18:43 TSH 0.661 mlU/mL (0.270-4.200) 02/28/21 18:43 Hepatitis A IgM Ab Non-reactive (NonReactive) 02/28/21 18:43 Hep Bs Antigen Nonreactive (Negative) 02/28/21 18:43 Hep B Core IgM Ab Non-reactive (NonReactive) 02/28/21 18:43 Hepatitis C Antibody Non-reactive (NonReactive) 02/28/21 18:43 Core Measure Documentation - Palliative Care Palliative Care/ Comfort Measures: Not Applicable - Core Measures Any of the following diagnoses?: none Exam - Constitutional Vitals: Temp Pulse Resp BP Pulse Ox 98.9 F 84 18 117/57 98 03/02/21 19:22 03/03/21 09:25 03/02/21 19:22 03/03/21 09:25 03/02/21 19:22 General appearance: Present: no acute distress - EENT Eyes: Present: PERRL, EOM intact ENT: hearing intact, clear oral mucosa - Neck Neck: Present: normal ROM - Respiratory Respiratory effort: normal Plan Activity: advance as tolerated Weight Bearing Status: Weight Bear as Tolerated Care Plan Goals: Maintain good and stable mental health Plan of Treatment: The patient should be compliant with medications, not to use drugs, and not to drink alcohol. The patient understands that if suicidal ideas, homicidal ideas or any endangering feeling arise, the patient should seek assistance including, but not limited to crisis hotline, and emergency room. Assessment: Acute Psychosis Follow up with: PRIMARY CARE, [Primary Care Provider] - 7 Days Forms: Warfarin Discharge Instruction Prescriptions: traZODone [Desyrel] 50 mg PO QHS #30 tablet DULoxetine [Cymbalta] 60 mg PO BID #60 capsule
[2021-03-03] MEDS: PILOCARPINE (NF) 5 MG TAB PO SCH (10:42)
== END 2021-03-03 20:30 | disposition home or self-care (01) | DRG 885 ==
LOC: 3A 09:45 → UNDOADMIN 09:45 → 5A 14:42
PROVIDERS: ADMIT Psychiatry & Neurology Psychiatry; ATTEND Psychiatry & Neurology Psychiatry
DX: F33.9 Major depressive disorder, recurrent, unspecified (principal); F29 Unspecified psychosis not due to a substance or known physiological condition; F41.9 Anxiety disorder, unspecified; F20.9 Schizophrenia, unspecified; M19.90 Unspecified osteoarthritis, unspecified site; K21.9 Gastro-esophageal reflux disease without esophagitis; G62.9 Polyneuropathy, unspecified; E78.2 Mixed hyperlipidemia; Z88.2 Allergy status to sulfonamides; M32.9 Systemic lupus erythematosus, unspecified
CPT/HCPCS: 36415; 80053; 80061; 80074; 82962; 84443; 85025; 85610; G0378; A9270-GY